=== PATIENT | male | born 1985 | race Caucasian/White ===

== ENCOUNTER 2021-04-04 17:45 | Emergency (ER) | payer OTHER ==
[2021-04-04] MEDS ORDERED: IPRATROPIUM 0.2 MG/ML NEB INH STA (19:05)
[2021-04-04] MEDS ORDERED: ALBUTEROL NEB 2.5 MG/3 ML INH STA (19:05)
--- NOTE | 2021-04-04 19:29 | XRAY Report ---
PROCEDURE: Chest 1 View X-Ray INDICATIONS: chest pain TECHNIQUE: One view of the chest was acquired. COMPARISON: None. FINDINGS: Surgical changes and devices: None. Lungs and pleura: No pleural effusions or pneumothorax. Lungs are clear. Mediastinum: Mediastinal contours appear normal. Heart size is normal. Bones and chest wall: No suspicious bony lesions. Overlying soft tissues appear unremarkable. IMPRESSION: No acute cardiopulmonary disease. Reviewed by: Indio Elizalde MD on 04/04/2021 7:28 PM PDT Approved by: Indio Elizalde MD on 04/04/2021 7:28 PM PDT Station ID: [id number]
--- NOTE | 2021-04-04 19:30 | ED Physician Documentation ---
History of Present Illness - Stated complaint Stated Complaint: SINUS, CHEST CONGESTION, COUGH - Chief complaint Chief Complaint: Heent - Additonal information Additional information: 36-year-old male comes to the emergency department for evaluation of chest cold cough and congestion. Symptoms began about 3 to 4 days ago with sinus pressure and congestion. But over the last 2 days it is progressed down to his chest and he has a constant cough and has a difficult time catching his breath. He denies any fevers. He reports being fully vaccinated for COVID-19. He does have a longstanding history of severe allergies as well as recurrent sinus infections for which he has been referred to an ear nose throat doctor. Denies any history of hypertension but is a daily smoker. Review of Systems Constitutional: denies: Fever, Chills Eyes: reports: Reviewed and negative Ears: reports: Reviewed and negative Nose: reports: Rhinorrhea / runny nose, Congestion Throat: reports: Sore throat Cardiac: reports: Reviewed and negative Respiratory: reports: Dyspnea, Cough, Wheezing GI: reports: Reviewed and negative : reports: Reviewed and negative Skin: reports: Reviewed and negative Musculoskeletal: reports: Reviewed and negative PD PAST MEDICAL HISTORY - Present Medications Home Medications: Ambulatory Orders Medication Instructions Recorded Confirmed Albuterol Sulf [Ventolin Hfa 1 - 2 puffs INH Q4HR PRN #1 inhaler 04/04/21 Inhaler] Benzonatate [Tessalon] 200 mg PO TID PRN #30 04/04/21 - Allergies Allergies/Adverse Reactions: Allergies Allergy/AdvReac Type Severity Reaction Status Date / Time No Known Drug Allergies Allergy Verified 04/04/21 19:15 - Social History Does the pt smoke?: No Smoking Status: Never smoker PD ED PE EXPANDED - General General: Alert, No acute distress - Neck Neck: Supple w/out meningeal sx. No: Adenopathy - Cardiac Cardiac: Regular Rate, Radial strong equal, Cap refill < 2 sec. No: Murmur Present - Respiratory Respiratory: Wheezing (Generalized expiratory wheeze with wet sounding rhonchorous cough. No tachypnea hypoxia or accessory muscle use). No: Clear to ausultation luca, Distress, Labored - Abdomen Abdomen: Normal Bowel sounds. No: Tender to palpation - Derm Derm: Normal color, Warm and dry. No: Rash - Extremities Extremities: Normal. No: Deformity, Tenderness - Neuro Neuro: Alert and Oriented X 3, CNII-XII intact Results - Vitals Vitals: Vital Signs - 24 hr 04/04/21 04/04/21 17:53 19:33 Temperature 36.8 C Heart Rate 104 H 68 Respiratory 16 18 Rate Blood Pressure 144/94 H O2 Saturation 98 Oxygen O2 Source Room air - Rads (name of study) CXR Radiology: Final report received (No acute cardiopulmonary process) PD MEDICAL DECISION MAKING - ED course Complexity details: reviewed results, re-evaluated patient, d/w patient ED course: This is a well-appearing 28-year-old male the presents emergency department with cough and congestion that initially began in his sinuses 3 days ago but is traveled down to his chest. On presentation he is not hypoxic but he did have diffuse expiratory wheeze. Patient was given initially Atrovent followed by a DuoNeb with marked resolution of symptoms and improvement in his cough. A chest x-ray did not show any acute focal opacity. Though he has been vaccinated for COVID-19 a Covid screen is pending. Patient will be discharged with a prescription for albuterol as well as Tessalon Perles. He is to continue to take the Mucinex DM. I will defer antibiotics g iven lack of fever focal opacity on the chest x-ray. Patient was advised to stop smoking. Emergent return precautions were discussed. Departure - Departure Disposition: 01 Home, Self Care Clinical Impression: Bronchitis Condition: Stable Record reviewed to determine appropriate education?: Yes Instructions: ED Upper Resp Infec No Abx Tx Prescriptions: Albuterol Sulf [Ventolin Hfa Inhaler] 1 - 2 puffs INH Q4HR PRN #1 inhaler PRN Reason: Shortness Of Air/Wheezing Benzonatate [Tessalon] 200 mg PO TID PRN #30 PRN Reason: Cough Comments: Bird you are seen in the emergency department today for cough and congestion. Your chest x-ray was unremarkable. You do not have findings of pneumonia. However when you presented to the emergency department you did have a lot of w heeze. We did give you to breathing treatment which markedly improved your symptoms. I feel that you would do well to use albuterol with a spacer at home 3-4 times a day. I have prescribed Tessalon Perles to help reduce the severity of your cough. I do recommend you continue to take the Mucinex DM to help as an expectorant. The you do have bronchitis this is likely viral and you do not need antibiotics at this time. I would recommend that you stop smoking. You have a Covid test pending. You need to self quarantine until the result is done and negative. Do not leave your house. Do not get near anybody. The results should be done in 48 to 72 hours. We will call with a positive result, the fastest way to get a negative result for confirmation though is to go to the hospital website at [email or web address], click on the my [email or web address] tab and sign up for the patient portal. If any friends or family get sick and would like to have a Covid test done, but do not have signs or symptoms that would necessitate being hospitalized, we encourage testing through our coronavirus swabbing station, call [phone] to schedule an appointment.
[2021-04-04] MEDS ORDERED: ALBUTEROL 1 PUFF INH STA (20:04)
[2021-04-04 20:26] VITALS: BP 142/91
== END 2021-04-04 20:37 | disposition home or self-care (01) ==
LOC: EDSEX → ED 17:45 → SUPCPDRO 17:45 → ED 20:37
DX: J40 Bronchitis, not specified as acute or chronic (principal); F17.200 Nicotine dependence, unspecified, uncomplicated; Z20.822 Contact with and (suspected) exposure to COVID-19
CPT/HCPCS: 71045; 87635; 94640; 99283; 99284; A9270